=== PATIENT | male | born 1990 | race Caucasian/White ===

== ENCOUNTER 2020-10-14 02:06 | Inpatient (IN) | payer SELFPAY ==
[~2020-10-14] VITALS: Ht 188 cm; Wt 56.8 kg
[2020-10-14] VITALS (9 sets, daily range): BP systolic 101–136; BP diastolic 70–96; Ht 188 cm; Wt 56.8 kg
[2020-10-14] MEDS ORDERED: NOVOLIN 70/30 110 ML SC (02:17)
[2020-10-14] MEDS ORDERED: LEVIMIR INSULIN SQ (02:19)
[2020-10-14 03:03] LABS: ANION GAP 13.9 mmol/L (8-16); CALCIUM 9.1 mg/dL (8.5-10.1); CARBON DIOXIDE 30.1 mmol/L (21.0-32.0); CREATININE - SERUM 1.7 mg/dL (0.6-1.3)
[2020-10-14 03:05] LABS: ALBUMIN 3.7 g/dL (3.4-5.0); BILIRUBIN - TOTAL 0.29 mg/dL (0.2-1.3); MAGNESIUM - SERUM 1.8 mg/dL (1.8-2.4); PROTEIN - SERUM 7.3 g/dL (6.4-8.2)
[2020-10-14 03:13] LABS: BILIRUBIN NEGATIVE (NEGATIVE); KETONE NEGATIVE mg/dL (< 1+); NITRITE NEGATIVE (NEGATIVE); PH 5.5 (5.0-8.0); UROBILINOGEN NORMAL mg/dL (< 2); WHITE CELLS - URINE <1 HPF (0-1)
[2020-10-14 03:20] LABS: BASOPHILS 0.9 % (0-2); EOSINOPHILS 3.6 % (0-7); HEMATOCRIT 41.6 % (42.0-54.0); HEMOGLOBIN 13.5 g/dL (13.5-17.5); LYMPHOCYTES 45.7 % (15-50); MCH 30.6 pg (26.0-34.0); MCHC 32.5 g/dL (31.0-37.0); MCV 94.2 fL (80.0-100.0); MEAN PLATELET VOLUME 8.2 fL (7.4-10.4); MONOCYTES 8.8 % (2-11); PLATELET COUNT 283 10x3/uL (130-400); RBC 4.42 10x6/uL (4.20-6.10); RDW 15.1 % (11.5-14.5); WBC 9.8 10x3/uL (4.8-10.8)
--- NOTE | 2020-10-14 04:23 | NUR ---
PT GIVEN WARM BLANKETS, DENIES FURTHER NEEDS. CALL LIGHT IN REACH.
--- NOTE | 2020-10-14 06:28 | NUR ---
PT AMBULATED TO RESTROOM INDEPENDENTLY.
--- NOTE | 2020-10-14 09:31 | NUR ---
RECHECKED FSBS DUE TO PT UNABLE TO EAT BREAKFAST. RESULT 323.
--- NOTE | 2020-10-14 18:45 | NUR ---
PATIENT IN BED RESTING QUIETLY. HAS HAD SOME NAUSEA SINCE UP ON THE UNIT BUT NO VOMITTING. HAS HAD DIARRHEA. NO COMPLAINTS OF PAIN. BS HAVE BEEN BETTER. IV INTACT. CALL LIGHT WITHIN REACH. REFUSES BSCDS. EDUCATED ABOUT BLOOD CLOTS.
[2020-10-15 04:00] VITALS: BP 126/62
--- NOTE | 2020-10-15 05:00 | NUR ---
PT REQUESTED BLOOD SUGAR BE CHECKED STATING HE THINKS IT IS LOW. FSBS 38. GAVE JENS CRACKERS, PEANUT BUTTER, MILK, ORANGE JUICE AND PUDDING. RECHECKED BLOOD SUGAR AT 0611 - 226. DID NOT TREAT WITH INSULIN AT THIS TIME. PT HAD RECEIVED HUMALOG 10 UNITS PER SS AND LANTUS 15 UNITS LAST NIGHT FOR FSBS 259.
[2020-10-15 08:12] VITALS: BP 128/86
[2020-10-15 12:43] VITALS: BP 138/99
[2020-10-15 18:02] VITALS: BP 122/86
--- NOTE | 2020-10-15 19:50 | NUR ---
DR SORENSEN RETURNED CALL. DISCUSSED WITH HER THE CHANGES SHE HAD MADE TO PT INSULINS, ORDERS ARE TO HOLD THE 15 UNITS FOR TONIGHT, DO NOT GIVE 25 UNITS TONIGHT, 25 UNITS WILL START TOMORROW NIGHT, INFORMATION PASSED TO LADONNA WARNER
[2020-10-15 21:29] VITALS: BP 110/77
[2020-10-16 00:57] VITALS: BP 136/93
[2020-10-16 05:09] VITALS: BP 108/78
--- NOTE | 2020-10-16 05:53 | NUR ---
PT REQUESTED BLOOD SUGAR BE CHECKED STATING IT "FEELS LOW." FSBS 45 - GAVE PT ORANGE JUICE, JENS CRACKERS, PEANUT BUTTER AND SHERBET. CHECKED FSBS AGAIN AND IS NOW 100. PT ALERT & ORIENTED. DRINKING ORANGE JUICE AND WILL EAT BREAKFAST.
[2020-10-16 06:20] LABS: ALBUMIN 3.5 g/dL (3.4-5.0); ALKALINE PHOSPHATASE 91 U/L (30-120); ALT (SGPT) 49 U/L (10-68); BILIRUBIN - TOTAL 0.17 mg/dL (0.2-1.3); CALC OSMOLALITY 281 mosm/kg (275-300); CALCIUM 9.1 mg/dL (8.5-10.1); CARBON DIOXIDE 33.4 mmol/L (21.0-32.0); CHLORIDE - SERUM 104 mmol/L (98-107); CREATININE - SERUM 0.9 mg/dL (0.6-1.3); POTASSIUM - SERUM 3.5 mmol/L (3.5-5.1); PROTEIN - SERUM 7.1 g/dL (6.4-8.2); SODIUM 142 mmol/L (136-145); UREA NITROGEN 20 mg/dL (7-18); eGFR NON AFRICAN AMERICAN > 90 mL/min (90-120)
[2020-10-16 06:23] LABS: BASOPHILS 0.7 % (0-2); EOSINOPHILS 3.9 % (0-7); HEMATOCRIT 41.4 % (42.0-54.0); HEMOGLOBIN 13.9 g/dL (13.5-17.5); LYMPHOCYTES 47.9 % (15-50); MCH 30.8 pg (26.0-34.0); MCHC 33.5 g/dL (31.0-37.0); MCV 91.9 fL (80.0-100.0); MEAN PLATELET VOLUME 7.6 fL (7.4-10.4); MONOCYTES 7.9 % (2-11); NEUTROPHILS 39.6 % (40-80); PLATELET COUNT 288 10x3/uL (130-400); RBC 4.51 10x6/uL (4.20-6.10); RDW 15.1 % (11.5-14.5); WBC 9.1 10x3/uL (4.8-10.8)
[2020-10-16 06:26] LABS: GLUCOSE 33 mg/dL (74-106)
[2020-10-16 08:23] VITALS: BP 109/62
[2020-10-16 13:14] VITALS: BP 116/75
[2020-10-16 17:04] VITALS: BP 100/65
--- NOTE | 2020-10-16 19:30 | NUR ---
PT SITTING UP IN BED WITHOUT DISTRESS, AOX4. DENIES NEEDS AT THIS TIME. CL IN REACH
[2020-10-16 20:00] VITALS: BP 131/87
--- NOTE | 2020-10-16 21:30 | NUR ---
PT FSBS 307. PER SS, PT SHOULD RECIEVE 12 UNITS OF HUMILIN AND 25 UNITS OF LANTUS. PT CONCERNED IT WILL DROP HIS BS TOO LOW. AGREED TO 10 UNITS HUMILIN AND 25 UNITS OF LANTUS. PT REFUSING TO BE CONNECTED TO IV FLUIDS, STATES HE WANTS TO BE ABLE TO MOVE AROUND FREELY. PT ALSO REFUSING TELEMETRY. SENT TELE MONITOR BACK TO [employer]. PT GIVEN HS SNACK AT THIS TIME.
[2020-10-17 04:00] VITALS: BP 97/55
--- NOTE | 2020-10-17 07:59 | NUR ---
RECIEVED BEDSIDE REPORT. BED LOW POSITION, CALL LIGHT IN REACH. FREE FROM SIGNS OF DISTRESS. ALERT AND ORIENTED. WILL CONITNUE TO MONITOR.
[2020-10-17 09:06] VITALS: BP 118/58
[2020-10-17 12:00] VITALS: BP 122/89
--- NOTE | 2020-10-17 14:55 | NUR ---
Nutrition follow-up: Visited with pt during rounds. Pt c/o not getting enough food to eat; hungry. Reviewed menu with pt; RD order Boost x 2 with lunch dinner to keep for snacks. RDN ordered double portions on protein foods Wt: 125# Pt reports he has always been slim and his wt trend is between 125-140# most of the time. Pt states he has a lot of insulin with him; however, it has been out of refrigeration since he has been traveling. Pt is not following a gluten-free diet out of the hospital due to being homeless at this time. Will continue to monitor patients progress toward nutrition goals in 3-4 days.
--- NOTE | 2020-10-17 14:55 | MORECARE ---
CASE MANAGEMENT DISCHARGE SUMMARY PATIENT: DENISE GANDHI UNIT: [id number] ADM DATE: 10/14/20 AGE: 30 : 92 SEX: M ROOM/BED: D.2207 AUTHOR: LIYAHDOC PHYSICIAN: REFERRING PHYSICIAN: JENNIE SORENSEN MD DATE OF SERVICE: 10/17/20 Case Management Discharge Planning Summary DCP REVIEW SUMMARY ANTICIPATED D/C DATE: EXPECTED LOS : CASE STATUS: DCP Initiated INITIAL REVIEW: 10/14/2020 INITIAL REVIEWER: Estrella Singer FINAL DISCHARGE DISPOSITION: : FINAL REVIEWER: FINAL REVIEW DATE: DCP Focus Questions & Answers QUESTION: ANSWER : PATIENT: DENISE GANDHI ENCOUNTER: [id number] MEDICAL RECORD#: [id number] ADMISSION DATE: 10/14/2020 DISCHARGE DATE: ATTENDING MD: FRAN: AGE: 30 MARITAL STATUS: S DC PLAN ID: [id number] FACILITY: [facility] PRINTED ON: 10/17/20 14:55 CT All edits/amendments must be made on the electronic document DICTATION DATE: 10/17/201454 TRACTOR TRAILER MECHANIC: DARIAN 10/17/201454 RPT#: [id number] DC DATE: STATUS: ADM IN [facility] [address] [place] [address] END OF REPORT
--- NOTE | 2020-10-17 15:10 | MORECARE ---
CASE MANAGEMENT DISCHARGE SUMMARY PATIENT: DENISE GANDHI UNIT: [id number] ADM DATE: 10/14/20 AGE: 30 : 89 SEX: M ROOM/BED: D.2207 AUTHOR: LIYAH,DOC PHYSICIAN: REFERRING PHYSICIAN: JENNIE SORENSEN MD DATE OF SERVICE: 10/17/20 Case Management Discharge Planning Summary COMMENTS ENTERED DATE: 10/17/20 14:50 CT COMMENT TYPE: Discharge Planning REVIEWER: Estrella Singer CM met with patient to assess discharge planning. He stated that he got into it with his family in [place] and decided he needed to leave. I traveled with another person in his separate car and made his was to [place], then somewhere else & ended up here in [place]. He said that he is out of gas, but has just a little bit and will have someone reeder rohan him some money and he can get more gas. He has found work and a place to stay via Facebook. He has [place] SIRIA. He said that his mom was going to mail him some of his medication. He has insulin in his car along with a glucometer. He plans on staying in [place]. We discussed that he needed to get his SIRIA switched to [place] SIRIA. I have given him information about diabetes, [place] SIRIA, [facility], [facility] and the Department of Human Services. He would like to be discharged today if possible. I have reached out to dr Esparza to let him know the above and that he would like to be discharged today. CM to follow as needed DCP REVIEW SUMMARY ANTICIPATED D/C DATE: EXPECTED LOS : CASE STATUS: DCP Initiated INITIAL REVIEW: 10/14/2020 INITIAL REVIEWER: Estrella Singer FINAL DISCHARGE DISPOSITION: : FINAL REVIEWER: FINAL REVIEW DATE: DCP Focus Questions & Answers QUESTION: ANSWER : PATIENT: DENISE GANDHI ENCOUNTER: [id number] MEDICAL RECORD#: [id number] ADMISSION DATE: 10/14/2020 DISCHARGE DATE: ATTENDING MD: FRAN: AGE: 30 MARITAL STATUS: S DC PLAN ID: [id number] FACILITY: [facility] PRINTED ON: 10/17/20 15:09 CT All edits/amendments must be made on the electronic document DICTATION DATE: 10/17/20 1506 PRESS BRAKE OPERATOR: DARIAN 10/17/20 1509 RPT#: [id number] DC DATE: STATUS: ADM IN [facility] [address] [place] [address] END OF REPORT
[2020-10-17] MEDS ORDERED: GABAPENTIN100 MG PO (16:34)
[2020-10-17 16:54] VITALS: BP 102/72
--- NOTE | 2020-10-17 17:57 | NUR ---
DISCHARGE TEACHING COMPLETE. NO FURTHER QUESTIONS. IV CATH REMOVED, CATH TIP INTACT. GATHERED BELONGINGS. LEFT UNIT AMBULATORY ESCORTED BY EQUINE VET.
--- NOTE | 2020-10-17 18:00 | MORECARE ---
CASE MANAGEMENT DISCHARGE SUMMARY PATIENT: DENISE GANDHI UNIT: [id number] ADM DATE: 10/14/20 AGE: 30 : 92 SEX: M ROOM/BED: D.2207 AUTHOR: LIYAH,DOC PHYSICIAN: REFERRING PHYSICIAN: JENNIE SORENSEN MD DATE OF SERVICE: 10/17/20 Case Management Discharge Planning Summary COMMENTS ENTERED DATE: 10/17/20 14:50 CT COMMENT TYPE: Discharge Planning REVIEWER: Estrella Singer CM met with patient to assess discharge planning. He stated that he got into it with his family in [place] and decided he needed to leave. I traveled with another person in his separate car and made his was to [place], then somewhere else & ended up here in [place]. He said that he is out of gas, but has just a little bit and will have someone reeder rohan him some money and he can get more gas. He has found work and a place to stay via Facebook. He has [place] SIRIA. He said that his mom was going to mail him some of his medication. He has insulin in his car along with a glucometer. He plans on staying in [place]. We discussed that he needed to get his SIRIA switched to [place] SIRIA. I have given him information about diabetes, [place] SIRIA, [facility], [facility] and the Department of Human Services. He would like to be discharged today if possible. I have reached out to dr Esparza to let him know the above and that he would like to be discharged today. CM to follow as needed DCP REVIEW SUMMARY ANTICIPATED D/C DATE: EXPECTED LOS : CASE STATUS: DCP Initiated INITIAL REVIEW: 10/14/2020 INITIAL REVIEWER: Estrella Singer FINAL DISCHARGE DISPOSITION: : FINAL REVIEWER: FINAL REVIEW DATE: DCP Focus Questions & Answers QUESTION: ANSWER : PATIENT: DENISE GANDHI ENCOUNTER: [id number] MEDICAL RECORD#: [id number] ADMISSION DATE: 10/14/2020 DISCHARGE DATE: 10/17/2020 ATTENDING MD: FRAN: AGE: 30 MARITAL STATUS: S DC PLAN ID: [id number] FACILITY: [facility] PRINTED ON: 10/17/20 18:00 CT All edits/amendments must be made on the electronic document DICTATION DATE: 06/15/21 1800 GMAT INSTRUCTOR: DARIAN 10/17/20 1800 RPT#: [id number] DC DATE:10/17/20 STATUS: DIS IN [facility] [address] [place] [address] END OF REPORT
--- NOTE | 2020-10-18 08:03 | MORECARE ---
CASE MANAGEMENT DISCHARGE SUMMARY PATIENT: DENISE GANDHI UNIT: [id number] ADM DATE: 10/14/20 AGE: 30 : 89 SEX: M ROOM/BED: D.2207 AUTHOR: LIYAH,DOC PHYSICIAN: REFERRING PHYSICIAN: JENNIE SORENSEN MD DATE OF SERVICE: 10/18/20 Case Management Discharge Planning Summary COMMENTS ENTERED DATE: 10/17/20 14:50 CT COMMENT TYPE: Discharge Planning REVIEWER: Estrella Singer CM met with patient to assess discharge planning. He stated that he got into it with his family in [place] and decided he needed to leave. I traveled with another person in his separate car and made his was to [place], then somewhere else & ended up here in [place]. He said that he is out of gas, but has just a little bit and will have someone reeder rohan him some money and he can get more gas. He has found work and a place to stay via Facebook. He has [place] SIRIA. He said that his mom was going to mail him some of his medication. He has insulin in his car along with a glucometer. He plans on staying in [place]. We discussed that he needed to get his SIRIA switched to [place] SIRIA. I have given him information about diabetes, [place] SIRIA, [facility], [facility] and the Department of Human Services. He would like to be discharged today if possible. I have reached out to dr Esparza to let him know the above and that he would like to be discharged today. CM to follow as needed DCP REVIEW SUMMARY ANTICIPATED D/C DATE: EXPECTED LOS : 0 CASE STATUS: DCP Complete INITIAL REVIEW: 10/14/2020 INITIAL REVIEWER: Estrella Singer FINAL DISCHARGE DISPOSITION: 01 : Home or Self Care (Routine Discharge) FINAL REVIEWER: Estrella Singer FINAL REVIEW DATE: 10/18/2020 DCP Focus Questions & Answers QUESTION: ANSWER : PATIENT: DENISE GANDHI ENCOUNTER: [id number] MEDICAL RECORD#: [id number] ADMISSION DATE: 10/14/2020 DISCHARGE DATE: 10/17/2020 ATTENDING MD: FRAN: AGE: 30 MARITAL STATUS: S DC PLAN ID: [id number] FACILITY: [facility] PRINTED ON: 10/18/20 8:03 CT All edits/amendments must be made on the electronic document DICTATION DATE: 10/18/20802 MARKETING WRITER: DARIAN 10/18/20802 RPT#: [id number] DC DATE:10/17/20 STATUS: DIS IN [facility] [address] [place] [address] END OF REPORT
== END 2020-10-17 17:59 | disposition home or self-care (01) | DRG 74 ==
LOC: D.ER 02:06 → D.EDHOLD 05:27 → D.MS 05:27
PROVIDERS: Family Medicine; ADMIT Emergency Medicine; ATTEND Emergency Medicine
DX: E11.43 Type 2 diabetes mellitus with diabetic autonomic (poly)neuropathy (principal); K31.84 Gastroparesis; Z59.0 Homelessness; K90.0 Celiac disease